=== PATIENT | male | born 1950 | race Caucasian/White ===

== ENCOUNTER 2017-02-05 08:53 | Day surgery (SDC) | payer MEDICARE ==
[2017-02-03 15:38] VITALS: BMI 29.8
[~2017-02-05 08:53] MED LIST: DEXAMETHASONE SOD PHOSPHATE 10 MG/ML 1 ML VIAL IV ONE; DEXAMETHASONE SOD PHOSPHATE 4 MG/ML 1 ML VIAL IV ONE; FAMOTIDINE 20 MG/2 ML VIAL IV ONE; HYDROmorphone 1 MG/ML 1 ML SYRINGE IVP PRN; LIDOCAINE 1% 20 ML VIAL (10MG/ML) FOR IV START INTRADERMA PRN; ONDANSETRON 4 MG/2 ML VIAL IVP ONE; ceFAZolin 2 GM in SODIUM CHLORIDE 0.9% 100 ML IVPB ONE
[2017-02-05] MEDS: OXYMETAZOLINE 0.05% NASL SPRAY 1 SPRAY BOTTLE NASAL ONE ×5 (09:50→10:10)
[2017-02-05] MEDS: LACTATED RINGERS 1,000 ML IV SCH ×2 (10:07→13:40)
[2017-02-05] MEDS ORDERED: PROPOFOL 10 MG/ML 20 ML VIAL IV ONE (11:19)
[2017-02-05] MEDS ORDERED: SUCCINYLCHOLINE CHLORIDE 100 MG/5 ML SYR IV ONE (11:19)
[2017-02-05] MEDS ORDERED: fentaNYL (PF) 50 MCG/ML 2 ML AMP ONE (11:19)
[2017-02-05] MEDS ORDERED: MIDAZOLAM 2 MG/2 ML VIAL ONE (11:19)
[2017-02-05] MEDS ORDERED: LIDOCAINE 1% INJ 10MG/ML (20 ML MDV) ONE (11:19)
[2017-02-05] MEDS ORDERED: LIDOCAINE 2%-EPI 1:100,000 20 ML VIAL SQ ONE (12:06)
[2017-02-05 13:10] VITALS: RESP 16; TEMP 98
--- NOTE | 2017-02-05 13:14 | P.OP ---
Date of Procedure: 02/05/17 Preoperative Diagnosis: 6.3 x 2 cm forehead keloid 2.2 x 1 cm left brow keloid Left nasal cicatrix Bilateral hypertrophy of nasal turbinates Postoperative Diagnosis: Same Procedure(s) Performed: Excision of a 6.3 x 2 cm forehead keloid with bilateral advancement flap closure with a secondary defect measuring 12.6 x 4 cm Excision of a 2.2 x 1 cm left brow keloid with complex closure Dermabrasion of the left nasal cicatrix Bilateral submucosal resection of the nasal inferior turbinates with outfracture Anesthesia: RAYOA Surgeon: Jero Ball Estimated Blood Loss (ml): 20 Pathology: other (Keloid) Condition: stable Disposition: PACU Indications for Procedure: This patient underwent a mid forehead flap for 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 He has healed well the margins were negative but he has nasal obstruction a painful keloid of his forehead and brow and a raised cicatrix and keloid of the left nose where the graft was placed. He would like to have a painful keloid removed from the forehead and brow along with opening his nose okay breathe better and contouring of the left nasal cicatrix. All risks, benefits, and alternative therapies were discussed in detail. Consent was obtained and all questions were answered. Operative Findings: Patient was found have a large painful keloid of the forehead measuring 6.3 x 2 cm with another keloid of the left brow medially measuring 2.2 x 1 cm along with a cicatrix of the left nose and bilateral hypertrophy of the inferior turbinates. Description of Procedure: This patient was taken to the operative room and placed in the supine position a general inhalation anesthetic was administered and monitored by the department of anesthesia. The face was sterilely prepped and draped in usual fashion the keloid of the forehead was marked along with the left brow keloid. Both of these keloids were excised with a 15 blade delicate plastic scissors and a Brown-Adson forceps. We did extensive undermining in all directions and closure of the forehead keloid could not be done primarily is therefore we developed a bilateral advancement flap with a secondary defect measuring 12.6 x 4 cm the original excision was 6.3 x 2 cm. After extensive undermining medial and lateral pedicle flaps were developed and moved into position we did remove the burrows triangles for better approximation. We closed this with a 3-0 PDS deeply closing the frontalis muscle we closed the deep dermal layer with a 4-0 Monocryl and the skin was closed with 5-0 nylon in a running locking fashion. The left brow incision is a 2.2 x 1 cm we closed that in a complex fashion doing extensive undermining we closed the deep subcutaneous tissue with 4-0 Monocryl the deep dermal layer with 4-0 Monocryl and the skin with a 5-0 nylon in a running nonlocking fashion we did prepped the skin edge before closure and close this in a complex fashion multilayered. We then took a dermabrader to the left nose and we did extensive dermabrasion of the nose with a timo that we recontoured the nose down turbinates statically pleasing contour. We then put in covering over that area utilizing Surgicel to prevent bleeding. We then entered the nose and then anesthetize the inferior turbinates and then entered the inferior turbinates with a microdebrider utilizing a 2 mm blade. We did a submucosal resection of the inferior turbinates bilaterally. We then did an outfracture with a Boyes nasal elevator and Merocel sponge packs were placed. The patient tolerated this well and a follow-up is scheduled for 1 week. Steri- Strips were applied to the forehead.
[2017-02-05 14:30] VITALS: BP 145/76; PULSE 100
== END 2017-02-05 15:02 | disposition home or self-care (01) ==
LOC: OR 08:53
PROVIDERS: ATTEND Otolaryngology
DX: L91.0 Hypertrophic scar (principal); J34.3 Hypertrophy of nasal turbinates; L90.5 Scar conditions and fibrosis of skin; J44.9 Chronic obstructive pulmonary disease, unspecified; F32.9 Major depressive disorder, single episode, unspecified; Z85.828 Personal history of other malignant neoplasm of skin; Z87.891 Personal history of nicotine dependence; Z88.8 Allergy status to other drugs, medicaments and biological substances; Z79.52 Long term (current) use of systemic steroids; Z79.899 Other long term (current) drug therapy
CPT/HCPCS: 88305; 88300; 30930; 14041; 13131; 15783; J2250; J1100; J0690; J2405; J2001; J3010; J0330; J2704

== ENCOUNTER → 2017-07-20 | Outpatient (CLI) | payer MEDICARE ==
--- NOTE | 2017-07-20 08:52 | CTL ---
EXAMINATION TYPE: CT Low Dose Lung DATE OF EXAM ORDERED: 07/20/2017 HISTORY: . Lung cancer screening CT DLP: 85.[address] CTDI: 2.3 mGy Automated exposure control for dose reduction was used. SCREENING VISIT: Initial COMPARISON: None TECHNIQUE: Low dose computed tomography scan was performed through the chest at 1 mm thick sections a nd reconstructed images in the coronal plane at [address] DIAGNOSTIC QUALITY: Satisfactory FINDINGS: LUNG NODULES: None. There is a 0.4 cm nodule within the anterior periphery of the lingula, series 4 image 137. This is a groundglass opacity. New irregular nodule measuring 0.5 cm is in the cardiophrenic angle of the right middle lobe. Series 4 image 137. LUNGS: COPD: Severity: None Fibrosis: Severity: None Lymph nodes: None Other findings: None RIGHT PLEURAL SPACE: Effusion: None Calcification: None Thickening: None Pneumothorax: None LEFT PLEURAL SPACE: Effusion: None Calcification: None Thickening: None Pneumothorax: None HEART: Heart Size: Normal Coronary calcification: Moderate Pericardial effusion: None OTHER FINDINGS: Upper abdomen: Normal Bony thorax: Normal Supraclavicular region: Normal Other: Ascending thoracic aorta at the level the main pulmonary artery is 3.9 cm. The main pulmonary artery at the bifurcation is 2.9 cm. Vascular calcification is within the aorta. IMPRESSION: Probably benign findings FOLLOW UP CT CHEST RECOMMENDATION: Follow-up low-dose CT screen in [address] LUNG RAD: Lung-Rad 3 Probably Benign
== END | disposition home or self-care (01) ==
LOC: RADCTMAIN 08:07
PROVIDERS: ATTEND Internal Medicine Sleep Medicine
DX: Z12.2 Encounter for screening for malignant neoplasm of respiratory organs (principal); Z87.891 Personal history of nicotine dependence

== ENCOUNTER → 2017-11-20 | Outpatient (CLI) | payer MEDICARE ==
--- NOTE | 2017-11-20 09:42 | CT ---
EXAMINATION TYPE: CT chest wo con DATE OF EXAM: 11/20/2017 COMPARISON: Low-dose lung screening CT July 20, 2017 HISTORY: Abnormal finding of lung field CT DLP: 590 mGycm. Automated Exposure Control for Dose Reduction was Utilized. TECHNIQUE: CT scan of the thorax is performed without IV contrast. FINDINGS: LUNGS: There is grossly stable 3 mm nodule anterolateral lateral left mid lung seen best coronal imag e 38. Measured 5 mm nodule prior exam right middle lobe medially appears to correlate with vessel on review of old outside study. There are additional scattered micronodules, for reference there are 2 3 mm nodules laterally in the left lung axial image 18 today in retrospect are stable from prior exam. There are no new suspicious greater than 4 mm parenchymal nodules or masses identified bilaterally. There is background mild emphysematous change with focal linear scarring anteriorly in the right midl bahman. No pleural effusion or pneumothorax is seen bilaterally. Tracheobronchial tree is patent. MEDIASTINUM: Lack of IV contrast is noted to limit evaluation for mediastinal and especially hilar ad enopathy. There are no definitive greater than 1 cm hilar or mediastinal lymph nodes. No cardiomega ly or pericardial effusion is seen. There is moderate to severe 3 vessel coronary artery calcificatio n which is noted marker for coronary artery disease. There is stable small size hiatal hernia. There is moderate calcified plaque of the thoracic aorta is seen. OTHER: No additional significant abnormality is seen. IMPRESSION: Scattered small nodules all measure under 4 mm in size. No new suspicious nodules or mass es. Advise annual low-dose lung screening CT in one year time.
== END | disposition home or self-care (01) ==
LOC: RADCTMAIN 08:51
PROVIDERS: ATTEND Internal Medicine Sleep Medicine
DX: R91.8 Other nonspecific abnormal finding of lung field (principal)
CPT/HCPCS: 71250

== ENCOUNTER → 2018-05-03 | Outpatient (CLI) | payer MEDICARE ==
[2018-05-03 11:30] LABS: Basophils # (A) 0.1 k/uL (0-0.2); Basophils % (A) 1 %; Eosinophils # (A) 0.2 k/uL (0-0.7); Eosinophils % (A) 2 %; HCT 43.1 % (39.0-53.0); HGB 14.2 gm/dL (13.0-17.5); Lymphocytes # (A) 1.9 k/uL (1.0-4.8); Lymphocytes % (A) 22 %; MCH 29.6 pg (25.0-35.0); MCHC 32.8 g/dL (31.0-37.0); MCV 90.3 fL (80.0-100.0); Mean Platelet Volume 7.4; Monocytes # (A) 0.4 k/uL (0-1.0); Monocytes % (A) 5 %; Neutrophils % (A) 69 %; Platelet Count 221 k/uL (150-450); RBC 4.78 m/uL (4.30-5.90); RDW 12.3 % (11.5-15.5); WBC 8.6 k/uL (3.8-10.6)
[2018-05-03 17:14] LABS: Albumin 4.3 g/dL (3.80-4.90); Albumin/Globulin Ratio 2.53 (1.20-2.10); Anion Gap 7.4 mmol/L (4.00-12.00); Calcium 9.4 mg/dL (8.7-10.3); Carbon Dioxide 27.6 mmol/L (21.6-31.8); Globulin 1.7 g/dL (2.1-3.7); LDL Cholesterol,Calculated 88.4 mg/dL (0.0-131.0); Potassium 4.9 mmol/L (3.5-5.5); Total Bilirubin 0.3 mg/dL (0.2-1.2); VLDL Calculation 54.6 mg/dL (5.00-40.00)
[2018-05-03 17:22] LABS: T4, Free (Free Thyroxine) 0.9 ng/dL (0.80-1.80)
== END | disposition home or self-care (01) ==
LOC: LABWHC1 10:07
PROVIDERS: ATTEND Family Medicine
DX: Z00.00 Encounter for general adult medical examination without abnormal findings (principal); E78.5 Hyperlipidemia, unspecified; Z12.5 Encounter for screening for malignant neoplasm of prostate
CPT/HCPCS: 36415; 80053; 80061; 84439; 84443; 85025

== ENCOUNTER → 2018-11-22 | Outpatient (CLI) | payer MEDICARE ==
--- NOTE | 2018-11-22 11:51 | CTL ---
EXAMINATION TYPE: CT Low Dose Lung DATE OF EXAM ORDERED: 11/22/2018 HISTORY: . Lung cancer screening CT DLP: 83.[address] CTDI: 2.2 mGy Automated exposure control for dose reduction was used. SCREENING VISIT: Screening COMPARISON: 11/20/2017, 07/20/2017 TECHNIQUE: Low dose computed tomography scan was performed through the chest at 1 mm thick sections a nd reconstructed images in the coronal plane at 1Mm thick sections. CT DIAGNOSTIC QUALITY: Satisfactory FINDINGS: LUNG NODULES: 1. Previously noted multiple 5 mm less pulmonary nodules are stable. One appears to be pleural-based and noncalcified right upper lobe image 78. No significant interval change. LUNGS: COPD: Severity: Mild Fibrosis: Severity: None Lymph nodes: None Other findings: None PLEURAL SPACE: Effusion: None Calcification: None Thickening: None Pneumothorax: None HEART: Heart Size: Mildly enlarged Coronary calcification: Dense atherosclerotic changes Pericardial effusion: Trace of pericardial fluid or pericardial thickening OTHER FINDINGS: Upper abdomen: None Bony thorax: Hypertrophic and degenerative changes of vertebral column. Supraclavicular region: Other: Ascending thoracic aorta at the level the main pulmonary artery is 3.9 cm. The main pulmonary artery at the bifurcation is 2.9 cm. Atherosclerotic change of the aorta. IMPRESSION: Excellent 1. Stable 5 mm less pulmonary nodules too small to characterize one of which appears to be calcified in the right upper lobe. FOLLOW UP CT CHEST RECOMMENDATION: Follow-up in one year recommended CT LUNG RAD: Lung-Rad 2 Benign Appearance or Behavior
== END | disposition home or self-care (01) ==
LOC: RADCTMAIN 11:09
PROVIDERS: ATTEND Internal Medicine Sleep Medicine
DX: Z12.2 Encounter for screening for malignant neoplasm of respiratory organs (principal); R91.8 Other nonspecific abnormal finding of lung field; Z87.891 Personal history of nicotine dependence

== ENCOUNTER → 2019-05-02 | Outpatient (CLI) | payer MEDICARE ==
[2019-05-02 12:02] LABS: Basophils # (A) 0.1 k/uL (0-0.2); Basophils % (A) 1 %; Eosinophils # (A) 0.2 k/uL (0-0.7); Eosinophils % (A) 2 %; HCT 43.2 % (39.0-53.0); HGB 13.9 gm/dL (13.0-17.5); Lymphocytes # (A) 1.9 k/uL (1.0-4.8); Lymphocytes % (A) 20 %; MCHC 32.1 g/dL (31.0-37.0); MCV 90.5 fL (80.0-100.0); Mean Platelet Volume 8.3; Monocytes # (A) 0.4 k/uL (0-1.0); Monocytes % (A) 4 %; Neutrophils # (A) 6.6 k/uL (1.3-7.7); Neutrophils % (A) 71 %; Platelet Count 247 k/uL (150-450); RBC 4.78 m/uL (4.30-5.90); RDW 12.1 % (11.5-15.5); WBC 9.3 k/uL (3.8-10.6)
[2019-05-02 18:11] LABS: Albumin 4.5 g/dL (3.80-4.90); Albumin/Globulin Ratio 2.5 (1.60-3.17); Anion Gap 5.1 mmol/L (4.00-12.00); Calcium 9.6 mg/dL (8.7-10.3); Carbon Dioxide 29.9 mmol/L (21.6-31.8); Chol/HDL Ratio 4.97; Globulin 1.8 g/dL (1.6-3.3); Non-African American GFR(CKD) 75.9 (60.0-200.0); Potassium 5.5 mmol/L (3.5-5.5); Total Bilirubin 0.4 mg/dL (0.2-1.2); Total Protein 6.3 g/dL (6.2-8.2)
== END | disposition home or self-care (01) ==
LOC: LABWHC1 10:39
PROVIDERS: ATTEND Midwife
DX: I10 Essential (primary) hypertension (principal); E78.5 Hyperlipidemia, unspecified
CPT/HCPCS: 36415; 80053; 80061; 83721; 84153; 84443; 85025

== ENCOUNTER → 2019-08-08 | Outpatient (CLI) | payer MEDICARE ==
[2019-08-08 09:01] LABS: Basophils # (A) 0.1 k/uL (0-0.2); Basophils % (A) 1 %; Eosinophils # (A) 0.2 k/uL (0-0.7); Eosinophils % (A) 3 %; HCT 43.6 % (39.0-53.0); HGB 14.2 gm/dL (13.0-17.5); Lymphocytes # (A) 1.8 k/uL (1.0-4.8); Lymphocytes % (A) 21 %; MCH 29.7 pg (25.0-35.0); MCHC 32.6 g/dL (31.0-37.0); MCV 90.9 fL (80.0-100.0); Mean Platelet Volume 7.8; Monocytes # (A) 0.4 k/uL (0-1.0); Monocytes % (A) 4 %; Neutrophils # (A) 5.9 k/uL (1.3-7.7); Neutrophils % (A) 70 %; Platelet Count 231 k/uL (150-450); RDW 12.2 % (11.5-15.5); WBC 8.5 k/uL (3.8-10.6)
[2019-08-08 17:00] LABS: African American GFR (CKD) 99.9 (60.0-200.0); Albumin 4.3 g/dL (3.80-4.90); Albumin/Globulin Ratio 2.39 (1.60-3.17); BUN/Creat Ratio 18.89 Ratio (12.00-20.00); Calcium 9.4 mg/dL (8.7-10.3); Chol/HDL Ratio 5.21; Globulin 1.8 g/dL (1.6-3.3); Non-African American GFR(CKD) 86.2 (60.0-200.0); Potassium 4.6 mmol/L (3.5-5.5); Total Bilirubin 0.4 mg/dL (0.2-1.2); Total Protein 6.1 g/dL (6.2-8.2)
== END | disposition home or self-care (01) ==
LOC: LABWHC1 08:01
PROVIDERS: ATTEND Family Medicine
DX: I10 Essential (primary) hypertension (principal); E78.5 Hyperlipidemia, unspecified
CPT/HCPCS: 36415; 80053; 80061; 83721; 85025

== ENCOUNTER → 2019-11-28 | Outpatient (CLI) | payer MEDICARE ==
--- NOTE | 2019-11-28 10:04 | CTL ---
EXAMINATION TYPE: CT Low Dose Lung DATE OF EXAM ORDERED: 11/28/2019 HISTORY: Z 87.891. Lung cancer screening CT DLP: [address] CTDI: 2.9 mGy Automated exposure control for dose reduction was used. SCREENING VISIT: 3 COMPARISON: Previous exam 11/22/2018 TECHNIQUE: Low dose computed tomography scan was performed through the chest at 1 mm thick sections a nd reconstructed images in the coronal plane at [address] DIAGNOSTIC QUALITY: Satisfactory FINDINGS: LUNG NODULES: None. LUNGS: COPD: Severity: Mild Fibrosis: Severity: Mild Lymph nodes: Nonenlarged Other findings: RIGHT PLEURAL SPACE: Effusion: None Calcification: None Thickening: None Pneumothorax: None LEFT PLEURAL SPACE: Effusion: None Calcification: None Thickening: None Pneumothorax: None HEART: Heart Size: Small Coronary calcification: Moderate Pericardial effusion: None OTHER FINDINGS: Upper abdomen: Unremarkable Bony thorax: Stable Supraclavicular region: Unremarkable Other: IMPRESSION: Negative FOLLOW UP CT CHEST RECOMMENDATION: [address] LUNG RAD: 1
== END | disposition home or self-care (01) ==
LOC: RADCTMAIN 08:14
PROVIDERS: ATTEND Internal Medicine Sleep Medicine
DX: Z12.2 Encounter for screening for malignant neoplasm of respiratory organs (principal); Z87.891 Personal history of nicotine dependence

== ENCOUNTER → 2020-01-02 | Outpatient (CLI) | payer MEDICARE ==
[2020-01-02 11:29] LABS: Basophils # (A) 0.1 k/uL (0-0.2); Basophils % (A) 1 %; Eosinophils # (A) 0.1 k/uL (0-0.7); Eosinophils % (A) 1 %; HCT 42.1 % (39.0-53.0); HGB 13.9 gm/dL (13.0-17.5); Lymphocytes # (A) 1.6 k/uL (1.0-4.8); Lymphocytes % (A) 19 %; MCHC 32.9 g/dL (31.0-37.0); MCV 91.1 fL (80.0-100.0); Monocytes # (A) 0.4 k/uL (0-1.0); Monocytes % (A) 4 %; Neutrophils # (A) 6.5 k/uL (1.3-7.7); Neutrophils % (A) 74 %; Platelet Count 221 k/uL (150-450); RBC 4.63 m/uL (4.30-5.90); RDW 12.5 % (11.5-15.5); WBC 8.8 k/uL (3.8-10.6)
[2020-01-02 20:11] LABS: Albumin 4.4 g/dL (3.80-4.90); Albumin/Globulin Ratio 2.32 (1.60-3.17); Anion Gap 9.8 mmol/L (4.00-12.00); Calcium 9.3 mg/dL (8.7-10.3); Carbon Dioxide 27.2 mmol/L (21.6-31.8); Chol/HDL Ratio 5.69; Globulin 1.9 g/dL (1.6-3.3); LDL Cholesterol,Calculated 100.8 mg/dL (0.0-131.0); Non-African American GFR(CKD) 75.9 (60.0-200.0); Potassium 4.8 mmol/L (3.5-5.5); Total Bilirubin 0.4 mg/dL (0.2-1.2); Total Protein 6.3 g/dL (6.2-8.2); VLDL Calculation 49.2 mg/dL (5.00-40.00)
== END | disposition home or self-care (01) ==
LOC: LABWHC1 09:41
PROVIDERS: ATTEND Family Medicine
DX: Z12.5 Encounter for screening for malignant neoplasm of prostate (principal); J44.9 Chronic obstructive pulmonary disease, unspecified; Z13.220 Encounter for screening for lipoid disorders
CPT/HCPCS: 36415; 80053; 80061; 84153; 85025

== ENCOUNTER 2024-09-13 08:33 | Day surgery (SDC) | payer MEDICARE ==
[~2024-09-13 08:33] MED LIST changes: -DEXAMETHASONE SOD PHOSPHATE 10 MG/ML 1 ML VIAL IV ONE; -DEXAMETHASONE SOD PHOSPHATE 4 MG/ML 1 ML VIAL IV ONE; -FAMOTIDINE 20 MG/2 ML VIAL IV ONE; -HYDROmorphone 1 MG/ML 1 ML SYRINGE IVP PRN; +LIDOCAINE 1% (10MG/ML) FOR IV START INTRADERMA PRN; -LIDOCAINE 1% 20 ML VIAL (10MG/ML) FOR IV START INTRADERMA PRN; -ONDANSETRON 4 MG/2 ML VIAL IVP ONE; +ONDANSETRON 4 MG/2 ML VIAL IVP PRN; -ceFAZolin 2 GM in SODIUM CHLORIDE 0.9% 100 ML IVPB ONE
[2024-09-13 09:19] VITALS: TEMP 97
[2024-09-13] MEDS: LACTATED RINGERS 1,000 ML IV ONE (09:34)
[2024-09-13] MEDS: LACTATED RINGERS 1,000 ML IV SCH (09:34)
[2024-09-13] MEDS ORDERED: PROPOFOL 10 MG/ML 20 ML VIAL IV ONE (09:53)
--- NOTE | 2024-09-13 09:55 | P.GSHP ---
History of Present Illness H&P Date: 09/13/24 Chief Complaint: Colon cancer screening 74-year-old male here for colonoscopy. Last colonoscopy he believes was normal. That was 6 years ago. No bowel complaints. Family history of colon cancer in his mother. Past Medical History Past Medical History: Cancer, COPD, Hypertension, Pneumonia, Skin Disorder Additional Past Medical History / Comment(s): Skin cancer,. nose feels plugged up, History of Any Multi-Drug Resistant Organisms: None Reported Past Surgical History: Orthopedic Surgery, Tonsillectomy Additional Past Surgical History / Comment(s): Tendon surgery R hand, gland removed R arm as a child, skin lesion removed from nose. fatty tumor removed from back of rt arm(softball size) Past Anesthesia/Blood Transfusion Reactions: Family History of Problems w/ Anesthesia Additional Past Anesthesia/Blood Transfusion Reaction / Comment(s): mother PONV Smoking Status: Former smoker - Past Family History Father Family Medical History: Cancer Additional Family Medical History / Comment(s): Lung Brother(s) Family Medical History: Cancer Additional Family Medical History / Comment(s): Prostate Sister(s) Family Medical History: Cancer Mother Family Medical History: Cancer Additional Family Medical History / Comment(s): Colon Father Sister(s) Family Medical History: Cancer Additional Family Medical History / Comment(s): Breast Medications and Allergies Home Medications Medication Instructions Recorded Confirmed Type Multivitamin [Men's Multi-Vitamin] 1 each PO DAILY 05/28/15 09/13/24 History Atorvastatin [Lipitor] 20 mg PO HS 09/06/24 09/13/24 History Co Q 10 100 mg PO HS 09/06/24 09/13/24 History Escitalopram Oxalate [Lexapro] 20 mg PO HS 09/06/24 09/13/24 History Fexofenadine/Pseudoephedrine 1 tab PO HS 09/06/24 09/13/24 History [Susana-D 24 Hour Tablet] Lisinopril/Hydrochlorothiazide 1 tab PO HS 09/06/24 09/13/24 History [Zestoretic 20-12.5] Umeclidinium Brm/Vilanterol Tr 1 puff INHALATION DAILY 09/06/24 09/13/24 History [Anoro Ellipta 62.5-25 Mcg INH] Vit D (Unk) 5,000 units PO MC 09/06/24 09/13/24 History Allergies Allergy/AdvReac Type Severity Reaction Status Date / Time lorazepam [From Ativan] Allergy Hallucinati Verified 09/13/24 09:19 ons Surgical - Exam Vital Signs Temp Pulse Resp BP Pulse Ox 97 F L 74 18 164/70 96 09/13/24 09:14 09/13/24 09:14 09/13/24 09:14 09/13/24 09:14 09/13/24 09:14 Physical exam: General: Well-developed, well-nourished HEENT: Normocephalic, sclerae nonicteric Abdomen: Nontender, nondistended Extremities: No edema Neuro: Alert and oriented Assessment and Plan (1) Colon cancer screening Narrative/Plan: Will proceed with colonoscopy at this time. Current Visit: Yes Status: Acute Code(s): Z12.11 - ENCOUNTER FOR SCREENING FOR MALIGNANT NEOPLASM OF COLON SNOMED Code(s): 556306936
--- NOTE | 2024-09-13 10:09 | P.PCN ---
Date of Procedure: 09/13/24 Procedure(s) Performed: PREOPERATIVE DIAGNOSIS: Colon cancer screening, family history of colon cancer POSTOPERATIVE DIAGNOSIS: Diverticulosis PROCEDURE: Colonoscopy ANESTHESIA: MAC SURGEON: Leo Woo M.D. SPECIMENS: None ENDOSCOPIC PROCEDURE: The patient was placed on the endoscopy table in the left decubitus position. The Olympus colonoscope was inserted into the anus and passed under direct visualization to the base of the cecum. The appendiceal orifice was visualized. From that point the scope was slowly withdrawn inspecting all surfaces carefully. There were no neoplastic inflammatory or polypoid lesions throughout the cecum, ascending, transverse, descending, sigmoid and rectum. There was mild scattered diverticulosis noted. Digital rectal examination was normal. The patient was taken to the recovery room in stable condition per anesthesia guidelines. RECOMMENDATIONS: Resume diet. Consider repeat colonoscopy 5 years given family history of colon cancer.
[2024-09-13 10:47] VITALS: BP 157/73; PULSE 75; RESP 18
== END 2024-09-13 11:00 | disposition home or self-care (01) ==
LOC: ORWHC2ENDO 08:33
PROVIDERS: ATTEND Surgery
DX: Z12.11 Encounter for screening for malignant neoplasm of colon (principal); K57.30 Diverticulosis of large intestine without perforation or abscess without bleeding; I10 Essential (primary) hypertension; E78.5 Hyperlipidemia, unspecified; J44.9 Chronic obstructive pulmonary disease, unspecified; F32.A Depression, unspecified; Z91.89 Other specified personal risk factors, not elsewhere classified; Z79.51 Long term (current) use of inhaled steroids; Z79.899 Other long term (current) drug therapy; Z87.891 Personal history of nicotine dependence; Z80.0 Family history of malignant neoplasm of digestive organs
CPT/HCPCS: G0105; J2704; 45378